=== PATIENT | male | born 1960 | race Two or more races ===

== ENCOUNTER 2019-09-16 10:37 | Inpatient (IN) | payer BC, OTHER ==
[~2019-09-16] VITALS: Ht 182.9 cm; Wt 109.7 kg
[2019-09-16] MEDS ORDERED: SODIUM CHLORIDE 0.9% 1,000 ML IV ONE ×2 (10:53)
[2019-09-16] MEDS ORDERED: cefTRIAXone 1GM/50ML D5W 50 ML IV ONE (11:00)
[2019-09-16] MEDS ORDERED: AZITHROMYCIN 500MG/ 250ML 250 ML IV ONE (11:00)
[2019-09-16] MEDS ORDERED: DexAMETHasone SOD PHOS 10MG/1ML VIAL INJ IV ONE (11:00)
[2019-09-16] MEDS ORDERED: ACETAMINOPHEN 500 MG TAB PO ONE ×2 (11:11→11:15)
[2019-09-16 11:13] LABS: Basophils # (auto) 0 10 ^3/uL (0-0.2); Eosinophils # (auto) 0 10 ^3/uL (0-0.8); Eosinophils % (auto) 0.3 % (0.0-7.0); Hematocrit 46.5 % (41.0-53.0); Hemoglobin 15.2 g/dL (13.5-17.5); Lymphocytes # (auto) 0.7 10 ^3/uL (0.4-5.4); Lymphocytes % (auto) 15.3 % (10.0-50.0); Mean Corpuscular Hemoglobin 28.1 pg (28.0-32.0); Mean Corpuscular Hgb Conc. 32.7 g/dL (32.0-36.0); Mean Corpuscular Volume 85.8 fL (80.0-100.0); Monocytes # (auto) 0.6 10 ^3/uL (0-1.3); Monocytes % (auto) 12.7 % (0.0-12.0); Neutrophils # (auto) 3.2 10 ^3/uL (1.6-8.6); Neutrophils % (auto) 70.7 % (37.0-80.0); Platelet Count (auto) 137 10^3/uL (140-450); Red Blood Cells 5.42 10^6/uL (4.5-5.90); Red Cell Distribution Width 16.9 % (11.8-14.3); White Blood Cell 4.5 10^3/uL (4.4-10.8)
[2019-09-16 11:31] LABS: Albumin 3.4 g/dL (3.4-5.0); Anion Gap 5 (5-15); Blood Urea Nitrogen 8 mg/dL (7-18); Calcium 8.2 mg/dL (8.5-10.1); Carbon Dioxide 28 mmol/L (21-32); Chloride 102 mmol/L (98-107); Glucose 101 mg/dL (74-106); Potassium 3.7 mmol/L (3.5-5.1); Sodium 135 mmol/L (136-145)
[2019-09-16 11:36] LABS: Alanine Aminotransferase 126 U/L (16-61); Alkaline Phosphatase 96 U/L (45-117); Aspartate Aminotransferase 83 U/L (15-37); BUN/Creatinine Ratio 6.7; Bilirubin, Total 0.6 mg/dL (0.2-1.0); GFR African American 81 mL/min; GFR Non-African American 67 mL/min; Total Protein 7.5 g/dL (6.4-8.2)
[2019-09-16] MEDS ORDERED: LORazepam 2MG/ML-1ML VIAL IV PRN (14:30)
[2019-09-16] MEDS ORDERED: MORPHINE SULFATE 4 MG/ML SYR/VIAL IV PRN (14:30)
[2019-09-16] MEDS ORDERED: MORPHINE SULF INJ 2 MG/ML SYRINGE 1ML IV PRN ×2 (14:30→16:45)
[2019-09-16] MEDS ORDERED: NITROGLYCERIN 0.4 MG SL TAB SL PRN (14:30)
[2019-09-16] MEDS ORDERED: LACTATED RINGER'S 1,000 ML IV ONE (14:45)
[2019-09-16] MEDS ORDERED: VANCOMYCIN PER PHARMACY 0 MG IV SCH (14:45)
[2019-09-16] MEDS ORDERED: VANCOMYCIN 1GM/250ML 250 ML IV ONE (15:00)
[2019-09-16 15:01] LABS: INR 1.04 (0.9-1.15); Partial Thromboplastin Time 29.6 sec (23.64-32.05)
--- NOTE | 2019-09-16 15:40 | NUR ---
Telemetry admit from [facility] admitted to Telemetry unit after SBAR received. Patient oriented to CHERYL ROBBINS, GLENNY primary RN, unit, room, bed, and unit policies regarding patient care and visiting hours. Patient now on continuous telemetry monitoring, tele box # 16. Patient placed on ROOM AIR, weighed by bedscale and encouraged to call if they need any assistance. All questions and concerns addressed, patient verbalized understanding.
[2019-09-16 16:34] VITALS: BP 104/66
[2019-09-16 17:00] VITALS: BP 104/66
[2019-09-16] MEDS ORDERED: LEVO125T66 PO (17:09)
--- NOTE | 2019-09-16 17:50 | NUR ---
IV INSERTION PLACED 20G IV TO LEFT UPPER ARM, PATIENT TOLERATED WELL. DISCONTINUED IV TO RIGHT HAND
[2019-09-16] MEDS: HYDROCORTISONE SOD SUCC 100 MG/2ML INJ VIAL IV SCH (19:03)
[2019-09-16] MEDS: PIPERACILLIN-TAZO 4.5GM 100 ML IV SCH (20:04)
[2019-09-16 22:00] VITALS: BP 104/66
[2019-09-16] MEDS ORDERED: FAMOTIDINE (10MG/ML) 2ML VL IV SCH (22:00)
[2019-09-16] MEDS ORDERED: VANCOMYCIN 1GM/250ML 250 ML IV SCH (22:00)
[2019-09-16 22:29] LABS: Urine Bacteria NONE SEEN /hpf (None Seen); Urine Blood Negative /uL (Negative); Urine Hyaline Cast FEW /lpf (0 - 2); Urine Mucus FEW (None Seen); Urine Specific Gravity 1.015 (1.001-1.035); Urine WBC <1 /hpf (0 - 3)
[2019-09-17] MEDS: HYDROCORTISONE SOD SUCC 100 MG/2ML INJ VIAL IV SCH ×2 (00:35→06:00)
[2019-09-17] MEDS ORDERED: FUROSEMIDE 20 MG/2 ML VIAL IV ONE (01:45)
[2019-09-17] MEDS ORDERED: FAMOTIDINE (10MG/ML) 2ML VL IV ONE (01:45)
[2019-09-17] MEDS ORDERED: CALCIUM GLUC 4.65meq/50ml D5AE 50 ML IV ONE ×2 (02:00→04:29)
[2019-09-17] MEDS: SODIUM CHLORIDE 0.9% 1,000 ML IV SCH ×2 (03:29→09:21)
[2019-09-17] MEDS ORDERED: VANCOMYCIN 1GM/250ML 250 ML IV SCH (04:00)
[2019-09-17] MEDS: FUROSEMIDE 20 MG/2 ML VIAL IV SCH ×2 (04:52→18:03)
[2019-09-17 05:33] VITALS: BP 122/72
[2019-09-17] MEDS: PIPERACILLIN-TAZO 4.5GM 100 ML IV SCH ×5 (06:00→21:24)
[2019-09-17] MEDS: LEVOTHYROXINE SODIUM 25 MCG TAB PO SCH (06:17)
[2019-09-17] MEDS: LEVOTHYROXINE SODIUM 100 MCG TAB PO SCH (06:17)
[2019-09-17] MEDS ORDERED: ENOXAPARIN SOD 120 MG/0.8 ML SYRINGE SC ONE ×2 (06:45)
[2019-09-17 07:09] LABS: Basophils # (auto) 0 10 ^3/uL (0-0.2); Basophils % (auto) 0.5 % (0.0-2.0); Eosinophils # (auto) 0 10 ^3/uL (0-0.8); Hematocrit 42.3 % (41.0-53.0); Lymphocytes # (auto) 0.6 10 ^3/uL (0.4-5.4); Lymphocytes % (auto) 17.7 % (10.0-50.0); Mean Corpuscular Hemoglobin 27.8 pg (28.0-32.0); Mean Corpuscular Hgb Conc. 33.1 g/dL (32.0-36.0); Mean Corpuscular Volume 84.1 fL (80.0-100.0); Monocytes # (auto) 0.3 10 ^3/uL (0-1.3); Monocytes % (auto) 9.8 % (0.0-12.0); Neutrophils # (auto) 2.6 10 ^3/uL (1.6-8.6); Platelet Count (auto) 148 10^3/uL (140-450); Red Blood Cells 5.02 10^6/uL (4.5-5.90); Red Cell Distribution Width 16.3 % (11.8-14.3); White Blood Cell 3.5 10^3/uL (4.4-10.8)
[2019-09-17 07:30] LABS: INR 1.01 (0.9-1.15); Partial Thromboplastin Time 27.6 sec (23.64-32.05)
[2019-09-17 07:31] LABS: Chloride 104 mmol/L (98-107); Potassium 3.2 mmol/L (3.5-5.1); Sodium 137 mmol/L (136-145)
--- NOTE | 2019-09-17 07:35 | NUR ---
Respiratory note: PT IS AWAKE, AND ALERT. NO RESPIRATORY DISTRESS NOTED. SPO2 96% ON RA, HR 83, RR 22, BS CLEAR/DIMINISHED BILATERALLY. NO FURTHER RESPIRATORY INTERVENTIONS INDICATED. WILL CONTINUE TO MONITOR PT. CHARTING COMPLETE FROM OUTSIDE OF ROOM.
[2019-09-17 07:36] LABS: CRP High Sensitivity 0.66 mg/dL (< 0.3)
[2019-09-17 07:39] LABS: Uric Acid 3.8 mg/dL (3.5-7.2)
[2019-09-17 07:47] LABS: Alanine Aminotransferase 102 U/L (16-61); Albumin 3.2 g/dL (3.4-5.0); Alkaline Phosphatase 83 U/L (45-117); Anion Gap 8 (5-15); Aspartate Aminotransferase 55 U/L (15-37); BUN/Creatinine Ratio 12.7; Bilirubin, Total 0.4 mg/dL (0.2-1.0); Blood Urea Nitrogen 13 mg/dL (7-18); Calcium 7.7 mg/dL (8.5-10.1); Carbon Dioxide 25 mmol/L (21-32); GFR African American 97 mL/min; GFR Non-African American 80 mL/min; Glucose 168 mg/dL (74-106); Magnesium 2.3 mg/dL (1.6-2.6); Phosphorus 2.4 mg/dL (2.5-4.90); Total Protein 6.9 g/dL (6.4-8.2)
[2019-09-17 08:30] VITALS: BP 101/67
[2019-09-17] MEDS: FAMOTIDINE (10MG/ML) 2ML VL IV SCH ×2 (09:21→21:36)
[2019-09-17] MEDS: ASPirin 81 mg TAB PO SCH (09:23)
[2019-09-17 12:00] VITALS: BP 102/77
--- NOTE | 2019-09-17 12:51 | NUR ---
PAGED DR. RAO TO DISCUSS PLAN OF CARE WITH PATIENT.
[2019-09-17] MEDS ORDERED: POTASSIUM EFFERVESENT TAB 25 MEQ PO ONE (14:45)
[2019-09-17] MEDS ORDERED: DexAMETHasone SOD PHOS 10MG/1ML VIAL INJ IV ONE (15:45)
[2019-09-17 16:30] VITALS: BP 120/85
[2019-09-17] MEDS: ACETAMINOPHEN 325 MG TAB PO PRN (17:44)
--- NOTE | 2019-09-17 19:30 | NUR ---
OPENING NOTE Received report from day shift RN. Patient is A&O X's 4 with no s/s of distress and reports no pain. Educated patient on POC and to use call light when in need of any assistance. Patient verbalized understanding. Bed is in lowest/locked position with side rails up X's 2 and call light is within reach of patient. Will continue care.
[2019-09-17] MEDS: DexAMETHasone 4 MG TAB PO SCH (21:24)
[2019-09-17 22:00] VITALS: BP 108/68
[2019-09-17] MEDS ORDERED: ATORVASTATIN 20 MG TAB PO SCH (22:00)
[2019-09-17] MEDS ORDERED: ENOXAPARIN SOD 120 MG/0.8 ML SYRINGE SC SCH (22:00)
--- NOTE | 2019-09-18 03:41 | NUR ---
NOTE Patient's oxygen decreased to about 86-88% seen on tele monitor. Examined patient. Patient found sleeping with N.C. off. Placed patient back on 2L N.C. O2 increased back to 90%. Patient's RR are even and unlabored. Will continue care.
[2019-09-18] MEDS: PIPERACILLIN-TAZO 4.5GM 100 ML IV SCH (05:53)
[2019-09-18] MEDS: FUROSEMIDE 20 MG/2 ML VIAL IV SCH (05:53)
[2019-09-18] MEDS: LEVOTHYROXINE SODIUM 100 MCG TAB PO SCH (05:54)
[2019-09-18] MEDS: LEVOTHYROXINE SODIUM 25 MCG TAB PO SCH (05:54)
[2019-09-18] MEDS: DexAMETHasone 4 MG TAB PO SCH (08:53)
[2019-09-18] MEDS: ASPirin 81 mg TAB PO SCH (08:54)
[2019-09-18] MEDS: ACETAMINOPHEN 325 MG TAB PO PRN (08:55)
[2019-09-18] MEDS: FAMOTIDINE (10MG/ML) 2ML VL IV SCH (08:56)
[2019-09-18 09:00] VITALS: BP 104/66
[2019-09-18] MEDS ORDERED: POTASSIUM EFFERVESENT TAB 25 MEQ PO SCH (10:00)
[2019-09-18] MEDS ORDERED: CHOL20007 PO (10:58)
[2019-09-18] MEDS ORDERED: DEX4T PO (10:58)
[2019-09-18] MEDS ORDERED: ZINC100T5 PO (10:59)
[2019-09-18] MEDS ORDERED: ASCO500T11 PO (10:59)
[2019-09-18] MEDS ORDERED: DOXY-286 PO (11:00)
[2019-09-18] MEDS ORDERED: PANT40TA2 PO (11:00)
[2019-09-18] MEDS ORDERED: POTASSIUM EFFERVESENT TAB 25 MEQ PO ONE (11:00)
[2019-09-18] MEDS ORDERED: ACE325T PO (12:12)
[2019-09-18 13:00] VITALS: BP 124/80
--- NOTE | 2019-09-18 14:04 | NUR ---
Assessment Patient is a 58- year-old male Assessment was completed with patient significant other Shikha . Per Shikha Prior to admission patient lived home with her and function independently. Per Shikha patient can care for his own ADLs. Per Shikha patient does not have any medical equipment now. Per Shikha patient will return to his prior living arrangements post discharge and she will transport him home. Patient PCP is Dr. Chin. Advise Shikha there is a social service consult for home oxygen. Informed Shikha clinical information will be faxed to [facility]. Advised Shikha for patient to follow up with his primary doctor. Informed Shikha she has the right to participate in all discharge planning. Shikha verbalized understanding and agreed to discharge plan. Faxed clinical information to [facility] requesting for them to deliver portable to front lobby. Per Katerina with [facility] oxygen portable will be deliver to front lobby and concentrate oxygen to home between 13:30-15:30. GLENNY Malone was informed. Addendum: 09/18/19 at 1405 by MATT CORTES Amended: Links added.
--- NOTE | 2019-09-18 16:29 | NUR ---
PATIENTS HOME O2 AND PRESCRIBED MEDICATIONS DELIVERED TO UNIT.
--- NOTE | 2019-09-18 17:25 | NUR ---
Discharge instructions given as ordered. Encourage to follow up with PMD as instructed. All questions and concerns addressed. Patient verbalized understanding. Medication reconciliation form completed and copy given to patient.IV removed with catheter intact, pressure dressing applied.Prescription medication in patients hand with Home O2. Telemetry unit returned to ICU. Patient taken to vehicle via wheelchair with all personal belongings, accompanied by staff and family member waiting in front lobby for transportation home. No distress noted at time of departure.
[2019-09-18] MEDS ORDERED: ENOXAPARIN SOD 40 MG/0.4 ML SYRINGE SC SCH (22:00)
[2019-09-19] MEDS ORDERED: FUROSEMIDE 20 MG/2 ML VIAL IV SCH (10:00)
== END 2019-09-18 17:25 | disposition home or self-care (01) | DRG 871 ==
LOC: ER 10:37 → TELE 10:38 → TELE-EAST 16:38
PROVIDERS: ADMIT Hospitalist; ATTEND Internal Medicine Nephrology
DX: A41.89 Other specified sepsis (principal); J96.01 Acute respiratory failure with hypoxia; J12.89 Other viral pneumonia; U07.1 COVID-19; J81.0 Acute pulmonary edema; E22.2 Syndrome of inappropriate secretion of antidiuretic hormone; E03.9 Hypothyroidism, unspecified; E87.6 Hypokalemia; E66.01 Morbid (severe) obesity due to excess calories; E78.5 Hyperlipidemia, unspecified; E83.51 Hypocalcemia; I50.82 Biventricular heart failure
CPT/HCPCS: 36415; 36600; 71045; 80053; 81001; 82553; 82565; 82728; 82805; 83605; 83615; 83735; 83880; 84100; 84484; 84550; 85025; 85379; 85610; 85652; 85730; 86141; 86850; 86900; 86901; 87040; 87070; 87086; 87804; 87880; 96365; 96368; 96375; G0378; J0610; J0696; J1100; J2543; J3490